=== PATIENT | female | born 1990 | race Caucasian/White ===

== ENCOUNTER → 2016-12-26 | Outpatient (CLI) | payer MEDICAID ==
--- NOTE | 2016-12-26 14:22 | US ---
December 26, 2016 Dear Providers at the [facility], Thank you for requesting a ultrasound to evaluate the anatomy for your patient, Mrs. Bella. As you know, William is a 26 year old G 1, P 0 with a holden dating 20 w 1 d; DAMIAN of by LMP of 08/07/16. Aneuploidy screening was performed and she had reassuring NIPT. ULTRASOUND Number of fetuses: 1 Placental location: Posterior; no evidence of previa Placental cord insertion: Intraplacental presentation: Breech Cervix: 6.1 cm viewed transabdominally Maximum Vertical Pocket: 3.5 cm The adnexa were evaluated. No pathology was seen. Right ovary is visualized and seen as normal. It measures 1.4 x 1.9 x 2.2 cm. Left ovary is visualized and seen as normal. It measures 1.7 x 1.6 x 2.3 cm. MEASUREMENTS: Biparietal diameter: 46 mm 19 weeks, 6 days Head circumference: 172 mm 19 weeks, 6 days Abdominal circumference: 163 mm 21 weeks, 3 days Femur length: 33 mm 20 weeks, 2 days Humerus length: 31 mm 20 weeks, 3 days Transcerebellar diameter: 21 mm 19 weeks, 5 days Average ultrasound age: 20 weeks, 3 days Estimated weight: 371 gm weight percentile: 76% ANATOMY Supratentorial brain: Normal including views of the falx, and cavum septum pellucidum. There is an incidental CHOROID PLEXUS CYST in the right ventricle Lateral Ventricle: Normal, measuring 5.4 mm Posterior fossa: Normal including the cerebellum and cisterna magna Spine: Normal Nuchal fold: 4.8 mm normal Face: Normal views of the lip and nose area Profile: Normal Palate: Normal appearance of the alveolar ridge Heart: Four Chamber View: Normal including the intraventricular Septum LVOT: Normal RVOT: Normal 3VV: Normal Tracheal View: Normal Aortic Arch: Seen Ductal Arch: Seen SVC/IVC: Seen Heart Rate 149 bpm Diaphragm: Normal appearance without overt abnormality detected Stomach: Normal Umbilical cord insertion: Normal Right kidney: Normal Left kidney: Normal Bladder: Normal Number of cord vessels: Three Upper extremities: Normal Lower extremities: Normal Gender: Female IMPRESSION: 1. Intrauterine at 20 w 1 d, ultrasound is consistent with her established DAMIAN of 05/14/17 . 2. Normal anatomical survey with an incidental right sided choroid plexus cyst. 3. Cervical length is normal at 6.1 cm without evidence of insufficiency. RECOMMENDATIONS: I was pleased to review today's ultrasound with your patient and her spouse. I reassured her that th e baby is growing appropriately with normal amniotic fluid volume. Our detailed review of the anatomy did not reveal any overt abnormalities. A single choroid plexus cyst was seen in the ri ght ventricle. Given her reassuring NIPT, this is consider a variant and does not require follow up. She is aware that this has an association with Trisomy 18, but typically when seen as an isolated f inding and with reassuring aneuploidy screening it is a variant. She is aware that these will univer emmanuel resolve over the course of the . Future ultrasound and consultation is left to your clinical discretion. Thank you for allowing us the opportunity to evaluate your patient. Should you have any further ques tions or concerns please do not hesitate to contact me. Low risk; no E&M. Noemi Bethea MD [employer] Specialist Maternal Medicine Diagnosis Department of Obstetrics & Gynecology [facility]
--- NOTE | 2016-12-26 17:13 | US ---
Complete Obstetric Ultrasound dated December 26, 2016 Indication: Evaluate growth and anatomy The estimated gestational age by LMP is 20 weeks 1 day yield ing an EDC of May 14, 2017. Comparison: None Findings: Number: 1 Presentation: Breech Placental location: Posterior without previa Cervix: Transabdominally measures 6.1 cm, long HR: 149 bpm MVP: 3.5 cm Ovaries are normal, left measuring 1.7 x 1.6 x 2.3 cm, right measuring 1.3 x 1.9 x 2.2 cm. Biometry: Biparietal diameter: 4.5 cm 19 weeks 6 days Head circumference: 17.2 cm 19 weeks 6 days Abdominal circumference: 16.3 cm 21 weeks 3 days Femur length: 3.3 cm 20 weeks 2 days Humerus length: 3.1 cm 20 weeks 3 days HC/AC: 1.05 (1.09 - 1.26) FL/BPD: 72% FL/AC: 20% Average ultrasound age: 20 weeks 3 days EDC based on today's average ultrasound age: May 12, 2017 Estimated weight is 371 +/- 54 gms. The estimated weight is at the 76 % based on previous dating. ANATOMY SURVEY: Supratentorial brain: Normal Posterior fossa: Normal Spine: Normal Nose and lips: Normal Facial profile: Normal Heart: Four chamber heart. Intact interventricular septum. Cardiac outflow tracts: Normal Stomach: Normal Umbilical cord insertion: Normal Kidneys: Normal, no pyelectasis Bladder: Normal Number of cord vessels: Three Upper extremities: Normal Lower extremities: Normal. No clubbing. Impression: 1. Living holden . Size concordant with dates. The estimated gestational age by biometry is 20 weeks 3 days yielding an EDC of May 12, 2017. 2. Unremarkable anatomy. No anomalies detected. 3. Please see additional consultation by Dr. Noemi Bethea.
== END ==
LOC: FIMAGING 09:35
PROVIDERS: ATTEND Advanced Practice Midwife
DX: Z34.02 Encounter for supervision of normal first pregnancy, second trimester (principal); Z3A.20 20 weeks gestation of pregnancy

== ENCOUNTER → 2017-05-22 | Outpatient (CLI) | payer MEDICAID | LOC: FIMAGING 09:41 | PROVIDERS: ATTEND Advanced Practice Midwife | DX: O48.0 Post-term pregnancy (principal); Z3A.41 41 weeks gestation of pregnancy ==